=== PATIENT | female | born 1970 | race Caucasian/White ===

== ENCOUNTER 2017-12-12 15:39 | Emergency (ER) | payer OTHER ==
[2017-12-12] MEDS ORDERED: NA CHLORIDE 0.9% 1,000 ML ONE (16:11)
[2017-12-12] MEDS ORDERED: FENTANYL CITR 100 MCG/2 ML ONE (16:11)
[2017-12-12 16:27] LABS: Absolute Lymphocytes (CBC) 2.5 K/uL (0.7-4.9); Absolute Monocytes 0.8 K/uL (0.1-1.3); Absolute Neutrophil 6.3 K/uL (1.8-8.0); Basophils % 0.4 % (0-1.3); Hematocrit 41.2 % (36.0-45.0); Lymphocytes % 25.8 % (15.3-44.8); MCV 106.9 fL (80-100); Monocytes % 8.3 % (3.3-12.3); RBC Red Blood Cell Count 3.85 M/uL (3.86-4.86)
[2017-12-12 16:40] LABS: ALT/SGPT 21 U/L (12-78); AST/SGOT 14 U/L (15-37); Albumin 3.9 g/dL (3.4-5.0); Alkaline Phosphatase 86 U/L (45-117); BUN Blood Urea Nitrogen 17 mg/dL (7-18); Bicarbonate 25 mmol/L (21-32); Bilirubin Direct < 0.1 mg/dL (0-0.2); Bilirubin Total 0.2 mg/dL (0.2-1.0); Glucose Level 97 mg/dL (74-106); Potassium 4.1 mmol/L (3.5-5.1); Sodium Level 142 mmol/L (136-145)
[2017-12-12 16:47] LABS: Urine Bacteria 20-50 /HPF (<20); Urine Culture Reflex Order NOT NEEDED; Urine RBC TNTC /HPF (NONE SEEN)
[2017-12-12] MEDS ORDERED: CIPROFLOXACIN 400mg IV 400 MG/200 ML BAG IV ONE (16:48)
--- NOTE | 2017-12-12 16:56 | RAD REPORT ---
EXAM DESCRIPTION: CT - Stone Protocol - 12/12/2017 4:39 pm CLINICAL HISTORY: Abdominal pain. COMPARISON: None. TECHNIQUE: Computed axial tomography of the abdomen pelvis was obtained without oral or IV contrast. Lack of IV and oral contrast limits evaluation of solid organs, bowel, and vessels. Coronal reformat ricci images were obtained and reviewed. All CT scans are performed using dose optimization technique as appropriate and may include automated exposure control or mA/KV adjustment according to patient size. FINDINGS: Multiple, bilateral renal calculi are present varying in size from 1 to 8 millimeters. Mil d left hydronephrosis is seen. 5 millimeter calculus is present at the left UPJ [place] unit 750. Small renal cysts are suspected. Right renal cortical thinning is seen The liver, spleen, pancreas and adrenals appear grossly normal There is no evidence of diverticulitis. The appendix has been removed A 47 millimeter cystic mass containing a septation is present within the left adnexal. Significant fr ee fluid is not noted. Tiny umbilical hernia is present. IMPRESSION: 5 millimeter calculus at the left UPJ with mild left hydronephrosis 47 millimeters cystic mass containing a septation within left adnexa likely representing a benign ova kerwin cyst. Followup ultrasound in a couple months is recommended to assess stability/resolution
[2017-12-12 16:58] LABS: Blood Morphology Comment NOT SEEN (NOT SEEN); Platelet Estimate ADEQ; Platelets, Giant FEW; Urine White Blood Cell Casts OK
--- NOTE | 2017-12-12 17:02 | ER ---
Nurse's Notes [facility] Name: Elizabeth Orellana Age: 47 yrs Sex: Female : 1970 Arrival Date: 12/12/2017 Time: 15:39 Bed 27 Private MD: Diagnosis: Hydronephrosis with renal and ureteral calculous obstruction;Other ovarian cysts Presentation: 12/12 15:48 Presenting complaint: Patient states: I passed a kidney stone at home a couple days la1 ago, I get them all the time, but since then I have not felt good with worsening pain and urinary symptoms. Transition of care: patient was not received from another setting of care. Onset of symptoms was December 12, 2017. Risk Assessment: Do you want to hurt yourself or someone else? Patient reports no desire to harm self or others. Initial Sepsis Screen: Does the patient meet any 2 criteria? No. Patient's initial sepsis screen is negative. Does the patient have a suspected source of infection? No. Patient's initial sepsis screen is negative. Care prior to arrival: None. 15:48 Method Of Arrival: Ambulatory la1 15:48 Acuity: GAGANDEEP 3 la1 Historical: - Allergies: 15:49 No Known Allergies; la1 - PMHx: 15:49 Hypertension; la1 - PSHx: 15:49 Lithotripsy; la1 15:50 Appendectomy; Hysterectomy; la1 - Immunization history:: Adult Immunizations up to date. - Social history:: Smoking status: Patient uses tobacco products, smokes one-half pack cigarettes per day. - Ebola Screening: : No symptoms or risks identified at this time. Screenin:09 Abuse screen: Denies threats or abuse. Denies injuries from another. Nutritional rv screening: No deficits noted. Tuberculosis screening: No symptoms or risk factors identified. Fall Risk None identified. Assessment: 16:08 General: Appears in no apparent distress. uncomfortable, Behavior is calm, cooperative. rv Pain: Complains of pain in right flank pain. Neuro: Level of Consciousness is awake, alert, obeys commands, Oriented to person, place, time, situation. Cardiovascular: Capillary refill < 3 seconds. Respiratory: Airway is patent. GI: Bowel sounds present X 4 quads. Abdomen is tender to palpation in right upper quadrant and right lower quadrant. : No signs and/or symptoms were reported regarding the genitourinary system. EENT: No signs and/or symptoms were reported regarding the EENT system. Derm: Skin is intact. 16:46 Reassessment: Patient appears in no apparent distress at this time. Patient and/or rv family updated on plan of care and expected duration. Pain level reassessed. Patient is alert, oriented x 3, equal unlabored respirations, skin warm/dry/pink. Vital Signs: 15:49 BP 140 / 100; Pulse 119; Resp 16; Temp 97.3; Pulse Ox 98% on R/A; Weight 77.11 kg; la1 Height 5 ft. 4 in. (162.56 cm); 16:45 BP 125 / 84; Pulse 93; Resp 17 S; Pulse Ox 100% on R/A; Pain 0/10; rv 17:51 BP 136 / 87; Pulse 88; Resp 18 S; Pulse Ox 99% on R/A; Pain 0/10; rv 15:49 Body Mass Index 29.18 (77.11 kg, 162.56 cm) la1 ED Course: 15:39 Patient arrived in ED. as 15:48 Liat Fraser F[facility]-C [facility]. snw 15:48 Nii Taylor MD is Attending Physician. snw 15:49 Triage completed. la1 15:49 Arm band placed on left wrist. la1 16:09 Patient has correct armband on for positive identification. Bed in low position. Call rv light in reach. Side rails up X 1. Adult w/ patient. Pulse ox on. NIBP on. 16:10 Urine collected: clean catch specimen, clear. Inserted saline lock: 20 gauge in right rv forearm, using aseptic technique. 16:10 Initial lab(s) drawn, by ct, sent to lab. jp3 16:17 Urine Dipstick--Ancillary (enter results) Sent. jp3 16:17 Urine Culture Sent. jp3 16:18 Urine Microscopic Only Sent. jp3 16:18 Hepatic Function Sent. jp3 16:18 CBC with Diff Sent. jp3 16:18 Basic Metabolic Panel Sent. jp3 16:38 CT completed. Patient tolerated procedure well. Patient moved back from CT. 16:39 CT Stone Protocol In Process Unspecified. EDMS 17:52 No provider procedures requiring assistance completed. IV discontinued, bleeding rv controlled, No redness/swelling at site. Pressure dressing applied. Administered Medications: 16:07 Drug: fentaNYL (PF) 50 mcg Route: IVP; Site: right forearm; rv 16:45 Follow up: Response: Pain is decreased rv 16:08 Drug: NS 0.9% 1000 ml Route: IV; Rate: 125 ml/hr; Site: right forearm; rv 17:51 Follow up: IV Status: Completed infusion rv 16:45 Drug: Cipro 400 mg Volume: 200 ml; Route: IVPB; Infused Over: 60 mins; Site: right rv forearm; 17:30 Drug: Flomax 0.4 mg Route: PO; rv 17:50 Follow up: Response: No adverse reaction rv 17:30 Drug: TORadol 30 mg Route: IVP; Site: right antecubital; rv 17:50 Follow up: Response: No adverse reaction rv 17:49 Drug: fentaNYL (PF) 50 mcg Route: IM; Site: right deltoid; rv 17:50 Follow up: Response: Medication administered at discharge. rv Outcome: 17:01 Discharge ordered by . snw 17:52 Discharged to home ambulatory. rv 17:52 Condition: good 17:52 Discharge instructions given to patient, Instructed on discharge instructions, follow up and referral plans. medication usage, Demonstrated understanding of instructions, follow-up care, medications, Prescriptions given X 4. 17:53 Patient left the ED. rv Signatures: Dispatcher [employer] EDMS Liat Fraser, NASC SIGHTSEEING GUIDE-Zoya Ogden Amelia as Attema, Lee, RN RN la1 Jos Faulkner RN RN Juan Cummings jp3
--- NOTE | 2017-12-12 17:02 | EDPHYS ---
Physician Documentation [facility] Name: Elizabeth Orellana Age: 47 yrs Sex: Female : 1970 Arrival Date: 12/12/2017 Time: 15:39 Bed 27 Private MD: ED Physician Nii Taylor HPI: 12/12 16:20 This 47 yrs old Female presents to ER via Ambulatory with complaints of snw Possible Kidney Stone. 16:20 The patient complains of pain in the right mid back. The pain does not radiate. Onset: snw The symptoms/episode began/occurred suddenly, 2 day(s) ago, and became persistent. Modifying factors: The symptoms are alleviated by nothing. Associated signs and symptoms: Pertinent positives: dysuria, fever, nausea. Severity of pain: At its worst the pain was moderate. The patient has experienced similar episodes in the past, chronically. The patient has not recently seen a physician. lives in [place]. Has had previous lithotripsy and stents. Pt states she passed a kidney stone two days ago but is not feeling relief post passing. Historical: - Allergies: 15:49 No Known Allergies; la1 - PMHx: 15:49 Hypertension; la1 - PSHx: 15:49 Lithotripsy; la1 15:50 Appendectomy; Hysterectomy; la1 - Immunization history:: Adult Immunizations up to date. - Social history:: Smoking status: Patient uses tobacco products, smokes one-half pack cigarettes per day. - Ebola Screening: : No symptoms or risks identified at this time. ROS: 16:19 Constitutional: Negative for fever, chills, and weight loss, Eyes: Negative for injury, snw pain, redness, and discharge, ENT: Negative for injury, pain, and discharge, Neck: Negative for injury, pain, and swelling, Cardiovascular: Negative for chest pain, palpitations, and edema, Respiratory: Negative for shortness of breath, cough, wheezing, and pleuritic chest pain, Abdomen/GI: Negative for abdominal pain, nausea, vomiting, diarrhea, and constipation, : Negative for injury, bleeding, discharge, and swelling, MS/Extremity: Negative for injury and deformity, Skin: Negative for injury, rash, and discoloration, Neuro: Negative for headache, weakness, numbness, tingling, and seizure. 16:19 Back: Positive for pain at rest, flank pain, on the right. Exam: 16:19 Constitutional: This is a well developed, well nourished patient who is awake, alert, snw and in no acute distress. Head/Face: Normocephalic, atraumatic. Eyes: Pupils equal round and reactive to light, extra-ocular motions intact. Lids and lashes normal. Conjunctiva and sclera are non-icteric and not injected. Cornea within normal limits. Periorbital areas with no swelling, redness, or edema. ENT: Nares patent. No nasal discharge, no septal abnormalities noted. Tympanic membranes are normal and external auditory canals are clear. Oropharynx with no redness, swelling, or masses, exudates, or evidence of obstruction, uvula midline. Mucous membranes moist. Neck: Trachea midline, no thyromegaly or masses palpated, and no cervical lymphadenopathy. Supple, full range of motion without nuchal rigidity, or vertebral point tenderness. No Meningismus. Chest/axilla: Normal chest wall appearance and motion. Nontender with no deformity. No lesions are appreciated. Cardiovascular: Regular rate and rhythm with a normal S1 and S2. No gallops, murmurs, or rubs. Normal PMI, no JVD. No pulse deficits. Respiratory: Lungs have equal breath sounds bilaterally, clear to auscultation and percussion. No rales, rhonchi or wheezes noted. No increased work of breathing, no retractions or nasal flaring. Abdomen/GI: Soft, non-tender, with normal bowel sounds. No distension or tympany. No guarding or rebound. No evidence of tenderness throughout. Skin: Warm, dry with normal turgor. Normal color with no rashes, no lesions, and no evidence of cellulitis. MS/ Extremity: Pulses equal, no cyanosis. Neurovascular intact. Full, normal range of motion. Neuro: Awake and alert, GCS 15, oriented to person, place, time, and situation. Cranial nerves II-XII grossly intact. Motor strength 5/5 in all extremities. Sensory grossly intact. Cerebellar exam normal. Normal gait. 16:19 Back: pain, that is moderate, CVA tenderness, that is moderate, is noted on the right, flank pain. Vital Signs: 15:49 BP 140 / 100; Pulse 119; Resp 16; Temp 97.3; Pulse Ox 98% on R/A; Weight 77.11 kg; la1 Height 5 ft. 4 in. (162.56 cm); 16:45 BP 125 / 84; Pulse 93; Resp 17 S; Pulse Ox 100% on R/A; Pain 0/10; rv 17:51 BP 136 / 87; Pulse 88; Resp 18 S; Pulse Ox 99% on R/A; Pain 0/10; rv 15:49 Body Mass Index 29.18 (77.11 kg, 162.56 cm) la1 MDM: 15:51 Patient medically screened. snw 17:00 Data reviewed: vital signs, nurses notes. Data interpreted: Pulse oximetry: on room air snw is 100 %. Interpretation: normal. Counseling: I had a detailed discussion with the patient and/or guardian regarding: the historical points, exam findings, and any diagnostic results supporting the discharge/admit diagnosis, the presence of at least one elevated blood pressure reading (>120/80) during this emergency department visit, lab results, radiology results, the need for outpatient follow up, for definitive care, to return to the emergency department if symptoms worsen or persist or if there are any questions or concerns that arise at home. Special discussion: I have referred the patient to see his PCP for further evaluation of high blood pressure. Based on the history and exam findings, there is no indication for further emergent testing or inpatient evaluation. I discussed with the patient/guardian the need to see the primary care provider for further evaluation of the symptoms. I discussed with the patient/guardian the need to see the urologist for further evaluation of the symptoms. 12/12 15:54 Order name: Basic Metabolic Panel; Complete Time: 16:46 snw 12/12 15:54 Order name: CBC with Diff; Complete Time: 16:59 snw 12/12 15:54 Order name: Hepatic Function; Complete Time: 16:46 snw 12/12 15:54 Order name: Urine Culture snw 12/12 15:54 Order name: Urine Microscopic Only; Complete Time: 16:51 snw 12/12 16:05 Order name: Urine Dipstick--Ancillary (enter results) em1 12/12 16:13 Order name: CT Stone Protocol; Complete Time: 16:57 snw 12/12 16:29 Order name: CBC Smear Scan; Complete Time: 16:59 EDMS 12/12 15:54 Order name: Labs collected and sent; Complete Time: 16:18 snw 12/12 15:54 Order name: Urine Dipstick-Ancillary (obtain specimen); Complete Time: 16:03 snw Administered Medications: 16:07 Drug: fentaNYL (PF) 50 mcg Route: IVP; Site: right forearm; rv 16:45 Follow up: Response: Pain is decreased rv 16:08 Drug: NS 0.9% 1000 ml Route: IV; Rate: 125 ml/hr; Site: right forearm; rv 17:51 Follow up: IV Status: Completed infusion rv 16:45 Drug: Cipro 400 mg Volume: 200 ml; Route: IVPB; Infused Over: 60 mins; Site: right rv forearm; 17:30 Drug: Flomax 0.4 mg Route: PO; rv 17:50 Follow up: Response: No adverse reaction rv 17:30 Drug: TORadol 30 mg Route: IVP; Site: right antecubital; rv 17:50 Follow up: Response: No adverse reaction rv 17:49 Drug: fentaNYL (PF) 50 mcg Route: IM; Site: right deltoid; rv 17:50 Follow up: Response: Medication administered at discharge. rv Disposition: 18:35 Co-signature as Attending Physician, Nii Taylor MD I agree with the assessment and kdr plan of care. Disposition: 12/12/17 17:01 Discharged to Home. Impression: Hydronephrosis with renal and ureteral calculous obstruction, Other ovarian cysts. - Condition is Stable. - Discharge Instructions: Kidney Stones, Ovarian Cyst, Hydronephrosis, Dietary Guidelines to Help Prevent Kidney Stones. - Prescriptions for Tylenol- Codeine #3 300-30 mg Oral Tablet - take 2 tablets by ORAL route every 6 hours As needed; 16 tablet. Zofran 4 mg Oral Tablet - take 1 tablet by ORAL route every 12 hours As needed; 20 tablet. Flomax 0.4 mg Oral Capsule, Sust. Release 24 hr - take 1 capsule by ORAL route once daily 1/2 hour following the same meal each day; 30 capsule. Diclofenac Sodium 75 mg Oral Tablet Sustained Release - take 1 tablet by ORAL route 2 times per day; 30 tablet. - Medication Reconciliation Form, Thank You Letter, Antibiotic Education, Prescription Opioid Use form. - Follow up: Private Physician; When: 2 - 3 days; Reason: Recheck today's complaints, Continuance of care, Re-evaluation by your physician. Follow up: Emergency Department; When: As needed; Reason: Worsening of condition. Signatures: Dispatcher [employer] EDMS Nii Taylor MD MD kdr Therrien, Shelly, ROLL TESTER-C ROLL TESTER-Csnw Bernardo Araya, RN RN la1 Jos Faulkner RN RN rv Corrections: (The following items were deleted from the chart) 17:53 17:01 12/12/2017 17:01 Discharged to Home. Impression: Hydronephrosis with renal and rv ureteral calculous obstruction; Other ovarian cysts. Condition is Stable. Forms are Medication Reconciliation Form, Thank You Letter, Antibiotic Education, Prescription Opioid Use. Follow up: Private Physician; When: 2 - 3 days; Reason: Recheck today's complaints, Continuance of care, Re-evaluation by your physician. Follow up: Emergency Department; When: As needed; Reason: Worsening of condition. snw
[2017-12-12] MEDS ORDERED: TAMSULOSIN 0.4 MG SR CAP ONE (17:12)
[2017-12-12] MEDS ORDERED: KETOROLAC 30 MG/ML INJ ONE (17:12)
[2017-12-12 20:30] LABS: Urine Blood 3+ (NEG); Urine Glucose NEGATIVE (NEG); Urine Protein 1+ (NEG); Urine Specific Gravity 1.025 (1.005-1.030)
== END 2017-12-12 17:53 | disposition home or self-care (01) ==
LOC: ER 15:39
DX: N13.2 Hydronephrosis with renal and ureteral calculous obstruction (principal); N83.299 Other ovarian cyst, unspecified side; I10 Essential (primary) hypertension; F17.210 Nicotine dependence, cigarettes, uncomplicated
CPT/HCPCS: 36415; 74176; 76377; 80048; 80076; 81003; 81015; 85025; 87086; 87088; 96372; 99284; J0744; J3010; J7030